=== PATIENT | female | born 1975 | race African-American/Black ===

== ENCOUNTER 2019-08-17 02:41 | Emergency (ER) | payer MEDICAID ==
[~2019-08-17] VITALS: Ht 165.1 cm; Wt 77.3 kg
[2019-08-17 07:24] VITALS: BP 124/74
== END 2019-08-17 07:42 | disposition home or self-care (01) ==
LOC: EMS 02:42
DX: S93.401A Sprain of unspecified ligament of right ankle, initial encounter (principal); F17.210 Nicotine dependence, cigarettes, uncomplicated; Z88.1 Allergy status to other antibiotic agents; W17.89XA Other fall from one level to another, initial encounter; Y93.89 Activity, other specified; Y92.89 Other specified places as the place of occurrence of the external cause; Y99.8 Other external cause status
CPT/HCPCS: 29515; 99406